=== PATIENT | male | born 1970 | race Caucasian/White ===

== ENCOUNTER 2023-02-12 16:15 | Outpatient (CLI) | payer BC, SELFPAY ==
--- NOTE | ~2023-02-12 | XR_ITS ---
EXAMINATION:XR cervical spine 4-5V, XR hip BI 2V w AP pelvis, XR thoracic spine 3V, XR lumbar spine 2 -3V DATE: 02/12/2023 17:01 INDICATION: Neck pain TECHNIQUE: 1. AP, lateral, lateral swimmers and odontoid views of the cervical spine were obtained. 2. AP, lateral and lateral swimmers views of the thoracic spine were obtained. 3. AP, lateral and coned-down lateral lumbosacral views of the lumbar spine were obtained. 4. AP view of the pelvis and AP and frog-leg lateral views of both the left and right hips were obta ined. COMPARISON: None FINDINGS: Cervical spine: Exaggerated cervical lordosis. Dens is intact. Mild atlantoaxial osteoarthritis. Vertebral body heigh ts are normal. Disc spaces are normal. No fracture identified. Multilevel mild bilateral cervical fac et osteoarthritis. Prevertebral soft tissues are normal. Thoracic spine: Mild thoracic kyphosis. Mild likely physiologic anterior wedging at T12.. Mild disc height loss with small to moderate-sized anterior degenerative endplate osteophytes at multiple levels throughout the spine relatively sparing the cephalad-most and caudal-most thoracic spine. Old healed posterolateral right fifth rib fracture. Visualized portions of the lungs are clear. No pleural effusion or pneumoth orax. Heart size is normal. Lumbar spine: 2 mm retrolisthesis L2 on L3, 304 mm retrolisthesis L3 on L4, one-2 mm anterolisthesis L4 on L5 and 2 mm anterolisthesis L5 on S1. Additional mild likely physiologic anterior wedging at L1. Lumbar verte bral body heights are normal. Moderate disc height loss at L5-S1. More cephalad lumbar disc heights a re normal both additional small to moderate-sized degenerative endplate osteophytes at multiple level s most prominent on the left at L2-L3 and L3-L4. Severe lower lumbar facet osteoarthritis. Pelvis and bilateral hips: Mild right and moderate left hip osteoarthritis with prominent marginal osteophytes along the femoral heads and acetabula. Moderate bilateral sacroiliac osteoarthritis. Sacral arches are intact. No evid ent fractures or suspected avascular necrosis. IMPRESSION: 1. Moderate spondylosis at the lumbosacral junction. Mild spondylosis in the more cephalad cervical, thoracic and lumbar spine. 2. 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 Reviewed, dictated and finalized at location A. IMPRESSION: 1. Moderate spondylosis at the lumbosacral junction. Mild spondylosis in the mo re cephalad cervical, thoracic and lumbar spine. 2. 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 IMPRESSION: 1. Moderate spondylosis at the lumbosacral junction. Mild spondylosis in the mo re cephalad cervical, thoracic and lumbar spine. 2. 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 IMPRESSION: 1. Moderate spondylosis at the lumbosacral junction. Mild spondylosis in the mo re cephalad cervical, thoracic and lumbar spine. 2. 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
== END 2023-02-12 16:16 | disposition home or self-care (01) ==
LOC: ANHIMG 16:22
PROVIDERS: PCP Emergency Medicine; Visit Provider Emergency Medicine
DX: R26.2 Difficulty in walking, not elsewhere classified (principal); R29.3 Abnormal posture; M47.817 Spondylosis without myelopathy or radiculopathy, lumbosacral region; M43.02 Spondylolysis, cervical region; M43.04 Spondylolysis, thoracic region; M43.06 Spondylolysis, lumbar region; M46.1 Sacroiliitis, not elsewhere classified; M16.0 Bilateral primary osteoarthritis of hip
CPT/HCPCS: 72050; 72072; 72100; 73521